=== PATIENT | male | born 1955 | race Two or more races ===

== ENCOUNTER 2022-01-29 04:26 | Inpatient (IN) | payer MEDICARE, OTHER ==
[~2022-01-29] VITALS: Ht 162.6 cm; Wt 65.3 kg
[2022-01-29 05:45] VITALS: BP 162/91
[2022-01-29 06:28] VITALS: BP 162/91
--- NOTE | 2022-01-29 06:44 | NUR ---
MS SCIENTIST ELECTRONICS NOTES PATIENT ARRIVED AT THE UNIT 0545 AM VIA STRETCHER ACCOMPANIED BY 2 EMT. DIRECT ADMIT FROM [facility]. PAPERWORKS GIVEN BY EMT. PATIENT A/OX4, NOT EXHIBITING S/S OF APPARENT DISTRESS ON ROOM AIR. NO C/O PAIN WHEN FIRST ARRIVED IN THE UNIT. [place]ORE[place] SPEAKING, CLASS B DRIVER WAS USED FOR ADMISSION QUESTIONS. PATIENT WISHES TO BE FULL CODE. BELONGINGS INVENTORIED AND SIGNED FOR. NEW ID BAND ON PATIENT. PER PATIENT HE HAS NO KNOWN ALLERGY. PER PATIENT ONLY MEDICAL HISTORY HE HAS IS HYPERTENSION, DIABETES-- WHICH HE HAD GOTTEN TOE AMPUTATIONS, AND WORK RELATED BACK INJURY THAT CAUSED HIM TO HAVE SURGERY BACK IN 2006. PATIENT DID NOT BRING ANY HOME MEDICATIONS WITH HIM AND DOES NOT KNOW THE MEDICATIONS HE IS TAKING ON TOP OF HIS HEAD-- ASKED PATIENT IF SOMEONE FROM HIS FAMILY COULD BRING THEM IN FOR RECONCILIATION. PER PATIENT I COULD CALL HIS DAUGHTER FOR HE DOES NOT KNOW DAUGHTERS NUMBER. WILL CALL DAUGHTER. AWAITING ADMISSION ORDERS. SAFETY IN PLACE FOR NOW, PATIENT TAUGHT ABOUT THE USE OF CALL LIGHT AND ORIENTED IN THE UNIT. V/S FOLLOWS: BP- 162/91, HR-99, RR-20, T-97.8, AND SATURATION 99% ON ROOM AIR. PER PATIENTHE IS 5'4" FOOT TALL, AND WEIGHS 144.9 LB IN THE BED SCALE. WILL FOLLOW THROUGH DOCTOR'S ORDERS AND INSERT CARE PLAN FOR PATIENT.
[2022-01-29] MEDS ORDERED: DEXTROSE 50%-WATER 50 ML DISP.SYRIN IV PRN (07:00)
[2022-01-29] MEDS ORDERED: MAG HYDROX/AL HYDROX/SIMETH 30 ML UDC PO PRN (07:00)
[2022-01-29] MEDS ORDERED: ZOLPIDEM TARTRATE 5 MG TABLET PO PRN (07:00)
[2022-01-29] MEDS ORDERED: Z GUARD REMEDY 4 OZ OINT TP PRN (07:00)
[2022-01-29] MEDS ORDERED: ACETAMINOPHEN 325 MG TABLET PO PRN (07:00)
[2022-01-29] MEDS ORDERED: ONDANSETRON HCL/PF 4 MG/2 ML VIAL IVP PRN (07:00)
[2022-01-29] MEDS ORDERED: MAGNESIUM HYDROXIDE 30 ML UDC PO PRN (07:00)
--- NOTE | 2022-01-29 07:06 | NUR ---
MS RN NOTE' CALLED DAUGHTER, NO ANSWER. LEFT A MESSAGED. WILL ENDORSE TO MORNING SHIFT RN.
--- NOTE | 2022-01-29 07:18 | NUR ---
MS RN NOTE PATIENT TAUGHT HOW TO USE BEDSIDE PHONE. CONTACTS OF DAUGHTER AND GIVEN TO PATIENT SO HE CAN CONTACT THEM ON HIS OWN.
--- NOTE | 2022-01-29 07:38 | NUR ---
RN NOTE REPORT GIVEN TO CLARISSA FOR CONTINUITY OF CARE. PATIENT ON THE PHONE WITH DAUGHTER AT THIS TIME.
--- NOTE | 2022-01-29 08:00 | NUR ---
RN OPENING NOTE PATIENT RECEIVED IN BED, AO X 4, IN NO ACUTE DISTRESS NOTED. RESPIRATORY EVEN AND UNLABORED ON ROOM AIR. SKIN IS WARM TO TOUCH, KEEP CLEAN/DRY, INTACT IV SITE. KEPT ELEVATED HOB FOR ENSURE AIRWAY AND ASPIRATION PRECAUTION, ALSO LOWEST POSITION OF THE BED, S/R UP X 2 FOR SAFETY. ALL SAFETY PRECAUTION APPLIED. CALL LIGHT WITHIN REACH, WILL CONTINUE TO MONITOR.
[2022-01-29 08:05] VITALS: BP 162/91
[2022-01-29 08:39] LABS: BASOPHILS % (AUTO) 0.2 % (0.0-2.0); EOSINOPHILS % (AUTO) 0.2 % (0.0-6.0); HEMATOCRIT 32 % (39-51); HEMOGLOBIN 10.8 g/dL (13.5-17.5); LYMPHOCYTES # (AUTO) 0.8 K/uL (0.8-4.8); LYMPHOCYTES % (AUTO) 5.5 % (20.0-44.0); MEAN CORPUSCULAR HGB CONC 33 g/dl (31.0-36.0); MEAN CORPUSCULAR VOLUME 86 fL (80-96); MONOCYTES % (AUTO) 6.6 % (2.0-12.0); NEUTROPHILS # (AUTO) 13.5 K/uL (1.8-8.9); NEUTROPHILS % (AUTO) 87.5 % (43.0-81.0); PLATELET COUNT (AUTO) 296 K/uL (150-450); RED BLOOD CELL COUNT(AUTO) 3.77 MIL/uL (4.5-6.0); WHITE BLOOD COUNT (AUTO) 15.4 K/uL (4.3-11.0)
[2022-01-29] MEDS: BLOOD SUGAR DIAGNOSTIC 1 EACH STRIP VI SCH ×4 (08:49→21:47)
[2022-01-29] MEDS ORDERED: HYDR-4077 PO (08:50)
[2022-01-29] MEDS ORDERED: CLON0.1T PO (08:50)
[2022-01-29] MEDS ORDERED: APIX5TAB PO (08:50)
[2022-01-29] MEDS ORDERED: INSU100V39 SQ (08:50)
[2022-01-29] MEDS ORDERED: FAMO20TA8 PO (08:50)
[2022-01-29] MEDS ORDERED: METF-442 PO (08:50)
[2022-01-29] MEDS ORDERED: LOSA50TA39 PO (08:50)
[2022-01-29] MEDS: IV 1/2NS 1000 ML 1,000 ML IV PRN ×2 (08:53→17:08)
[2022-01-29] MEDS: PANTOPRAZOLE 40 MG TABLET.DR PO SCH (08:55)
[2022-01-29 09:32] LABS: ALBUMIN 3.8 g/dL (3.4-5.0); BILIRUBIN,TOTAL 0.2 mg/dL (0.2-1.0); CALCIUM, SERUM 8.5 mg/dL (8.5-10.1); CREATININE 1.4 mg/dL (0.6-1.3); PHOSPHORUS 4.5 mg/dL (2.5-4.9); POTASSIUM 4.3 mmol/L (3.5-5.1); TOTAL PROTEIN, SERUM 7.8 g/dL (6.4-8.2)
[2022-01-29 09:38] LABS: THYROID STIMULATING HORMONE 1.987 uIU/mL (0.358-3.74)
[2022-01-29] MEDS: INSULIN REGULAR, HUMAN 100 UNIT/ML 3 ML VIAL SQ PRN ×2 (11:46→17:19)
[2022-01-29] MEDS: HYDROCODONE/APAP 10/325MG TABLET PO PRN ×2 (11:52→21:47)
[2022-01-29] MEDS ORDERED: CLONIDINE HCL 0.1 MG TABLET PO PRN (13:30)
[2022-01-29] MEDS ORDERED: CEFTRIAXONE 1 G VIAL IM SCH (14:00)
[2022-01-29] MEDS ORDERED: LACTULOSE 10 G/15 ML UDC (PYXIS) PO PRN (14:30)
[2022-01-29 16:00] VITALS: BP 198/105
[2022-01-29] MEDS: CEFTRIAXONE 1 G in IV D5W 50 ML IV SCH (16:09)
[2022-01-29] MEDS: APIXABAN 5 MG TABLET PO SCH (16:17)
[2022-01-29] MEDS: LOSARTAN POTASSIUM 50 MG TABLET PO SCH (16:18)
[2022-01-29] MEDS: hydrALAZINE HCL 50 MG TABLET PO SCH (17:21)
--- NOTE | 2022-01-29 18:28 | NUR ---
RN CLOSING NOTE PATENT IN BED, REMAINS AO X 4, IN NO ACUTE DISTRESS OBSERVED. RESPIRATORY EVEN AND UNLABORED ON ROOM AIR. SKIN IS WARM TO TOUCH KEEP CLEAN/DRY, INTACT IV SITE. KEPT ELEVATE HOB FOR ASPIRATION PRECAUTION AND ENSURE AIRWAY, ALSO LOWEST POSITION OF THE BED FOR SAFETY. CALL LIGHT WITHIN REACH, WILL ENDORSE TO ZIG ZAG STITCHER.
--- NOTE | 2022-01-29 19:35 | NUR ---
RN NOTES RECEIVED PATIENT AWAKE ON BED, A/OX4, AMBULATORY, DENIES PAIN, NO SOB, CALL LIGHT WITHIN REACH, [id number], WILL CONTINUE TO MONITOR
[2022-01-29 20:00] VITALS: BP 154/84
--- NOTE | 2022-01-29 21:52 | NUR ---
RN NOTES COMPLAINED OF GENERALIZED PAIN- NORCO 10MG PO GIVEN ORDERED, V/S STABLE
[2022-01-30 00:01] LABS: BILIRUBIN,URINE NEGATIVE (NEGATIVE); COLOR,URINE YELLOW (YELLOW); LEUKOCYTE ESTERASE ,URINE NEGATIVE (NEGATIVE); NITRITE, URINE NEGATIVE (NEGATIVE); PH,URINE 6.5 (5.0-8.0); PROTEIN,URINE NEGATIVE (NEGATIVE); UGLUCOSE 250 MG/DL mg/dL (NEGATIVE); UROBILINOGEN,URINE 0.2 EU/dL (0.2)
[2022-01-30] MEDS: hydrALAZINE HCL 50 MG TABLET PO SCH ×4 (00:23→17:30)
[2022-01-30] MEDS: IV 1/2NS 1000 ML 1,000 ML IV PRN ×2 (04:29→16:24)
[2022-01-30] MEDS: HYDROCODONE/APAP 10/325MG TABLET PO PRN ×3 (05:52→20:52)
--- NOTE | 2022-01-30 05:54 | NUR ---
RN NOTES COMPLAINED OF GENERALIZED PAIN- NORCO 10/325MG PO GIVEN ORDERED, V/S STABLE
[2022-01-30] MEDS: INSULIN REGULAR, HUMAN 100 UNIT/ML 3 ML VIAL SQ PRN ×2 (06:31→17:29)
--- NOTE | 2022-01-30 06:40 | NUR ---
RN NOTES AWAKE, MORNING CARE RENDERED, CALL LIGHT WITHIN REACH, [id number], PT. NEEDS ATTENDED
[2022-01-30 06:44] LABS: BASOPHILS % (AUTO) 0.4 % (0.0-2.0); EOSINOPHILS % (AUTO) 2.6 % (0.0-6.0); HEMATOCRIT 30 % (39-51); HEMOGLOBIN 10.2 g/dL (13.5-17.5); LYMPHOCYTES # (AUTO) 1.9 K/uL (0.8-4.8); LYMPHOCYTES % (AUTO) 22.7 % (20.0-44.0); MEAN CORPUSCULAR HGB CONC 34 g/dl (31.0-36.0); MEAN CORPUSCULAR VOLUME 86 fL (80-96); MONOCYTES # (AUTO) 0.7 K/uL (0.1-1.30); MONOCYTES % (AUTO) 8.4 % (2.0-12.0); NEUTROPHILS # (AUTO) 5.5 K/uL (1.8-8.9); NEUTROPHILS % (AUTO) 65.9 % (43.0-81.0); PLATELET COUNT (AUTO) 270 K/uL (150-450); RED BLOOD CELL COUNT(AUTO) 3.46 MIL/uL (4.5-6.0); WHITE BLOOD COUNT (AUTO) 8.4 K/uL (4.3-11.0)
[2022-01-30 07:07] LABS: ALBUMIN 3.4 g/dL (3.4-5.0); BILIRUBIN,DIRECT 0.1 mg/dL (0.0-0.2); BILIRUBIN,TOTAL 0.3 mg/dL (0.2-1.0); CALCIUM, SERUM 8.5 mg/dL (8.5-10.1); CREATININE 1.2 mg/dL (0.6-1.3); MAGNESIUM 2.3 mg/dL (1.8-2.4); PHOSPHORUS 4.3 mg/dL (2.5-4.9); POTASSIUM 3.9 mmol/L (3.5-5.1)
[2022-01-30] MEDS: BLOOD SUGAR DIAGNOSTIC 1 EACH STRIP VI SCH ×4 (07:10→22:30)
--- NOTE | 2022-01-30 07:51 | NUR ---
RN OPENING NOTE PATIENT RECEIVED IN BED, IN NO ACUTE DISTRESS NOTED, ao x 4. RESPIRATORY EVEN AND UNLABORED ON ROOM AIR. SKIN IS WARM TO TOUCH, KEEP CLEAN/DRY, INTACT IV SITE. KEPT ELEVATED HOB FOR ENSURE AIRWAY AND ASPIRATION PRECAUTION, ALSO LOWEST POSITION OF THE BED, S/R UP X 2 FOR SAFETY. ALL SAFETY PRECAUTION APPLIED. CALL LIGHT WITHIN REACH, WILL CONTINUE TO MONITOR.
[2022-01-30 08:00] VITALS: BP 148/89
[2022-01-30] MEDS: LOSARTAN POTASSIUM 50 MG TABLET PO SCH ×2 (08:07→16:20)
[2022-01-30] MEDS: PANTOPRAZOLE 40 MG TABLET.DR PO SCH (08:07)
[2022-01-30] MEDS: APIXABAN 5 MG TABLET PO SCH ×2 (08:09→16:23)
[2022-01-30] MEDS ORDERED: FAMOTIDINE (20 MG) 20 MG TABLET PO SCH (09:00)
[2022-01-30] MEDS: *INSULIN REGULAR(HUMULIN R)HUM 100 UNIT/ML VIAL SQ PRN ×2 (12:28→22:32)
[2022-01-30] MEDS ORDERED: IOHEXOL-300 100 ML VIAL IV ONE (12:38)
--- NOTE | 2022-01-30 12:59 | NUR ---
PATIENT SIGNED ON CONSENT FOR CT ABD AND PELVIS WITH CONTRAST.
[2022-01-30] MEDS: CEFTRIAXONE 1 G in IV D5W 50 ML IV SCH (14:37)
[2022-01-30] MEDS: DOCUSATE SODIUM 100 MG CAPSULE PO SCH (16:19)
[2022-01-30 16:50] VITALS: BP 181/96
--- NOTE | 2022-01-30 18:40 | NUR ---
RN CLOSING NOTE PATENT IN BED, REMAINS AO X 4, IN NO ACUTE DISTRESS OBSERVED. RESPIRATORY EVEN AND UNLABORED ON ROOM AIR. SKIN IS WARM TO TOUCH KEEP CLEAN/DRY, INTACT IV SITE. KEPT ELEVATED HOB FOR ASPIRATION PRECAUTION AND ENSURE AIRWAY, ALSO LOWEST POSITION OF THE BED FOR SAFETY. CALL LIGHT WITHIN REACH, WILL ENDORSE TO PENS AND PENCILS REPAIRER.
--- NOTE | 2022-01-30 19:10 | NUR ---
MS RN OPENING NOTES: RECEIVED PATIENT RESTING IN BED, AWAKE, A/O X4 NO S/S OF DISTRESS NOTED. CALL LIGHT WITHIN REACH. BED IN LOWEST AND LOCKED POSITION.
[2022-01-30 19:49] VITALS: BP 180/88
[2022-01-30 23:59] VITALS: BP 146/84
[2022-01-31] MEDS: hydrALAZINE HCL 50 MG TABLET PO SCH ×4 (00:24→17:26)
[2022-01-31] MEDS: IV 1/2NS 1000 ML 1,000 ML IV PRN (04:24)
[2022-01-31] MEDS: HYDROCODONE/APAP 10/325MG TABLET PO PRN ×3 (04:46→20:38)
[2022-01-31] MEDS: INSULIN REGULAR, HUMAN 100 UNIT/ML 3 ML VIAL SQ PRN ×2 (06:54→11:46)
[2022-01-31 06:56] LABS: BASOPHILS # (AUTO) 0.1 K/uL (0.0-0.2); BASOPHILS % (AUTO) 0.7 % (0.0-2.0); EOSINOPHILS % (AUTO) 2.7 % (0.0-6.0); HEMATOCRIT 30 % (39-51); HEMOGLOBIN 10.3 g/dL (13.5-17.5); LYMPHOCYTES # (AUTO) 1.9 K/uL (0.8-4.8); LYMPHOCYTES % (AUTO) 22.8 % (20.0-44.0); MEAN CORPUSCULAR HGB CONC 34 g/dl (31.0-36.0); MEAN CORPUSCULAR VOLUME 85 fL (80-96); MONOCYTES # (AUTO) 0.7 K/uL (0.1-1.30); MONOCYTES % (AUTO) 8.6 % (2.0-12.0); NEUTROPHILS # (AUTO) 5.4 K/uL (1.8-8.9); NEUTROPHILS % (AUTO) 65.2 % (43.0-81.0); PLATELET COUNT (AUTO) 281 K/uL (150-450); RED BLOOD CELL COUNT(AUTO) 3.51 MIL/uL (4.5-6.0); WHITE BLOOD COUNT (AUTO) 8.3 K/uL (4.3-11.0)
[2022-01-31 07:45] LABS: CREATININE 1.2 mg/dL (0.6-1.3)
[2022-01-31] MEDS: BLOOD SUGAR DIAGNOSTIC 1 EACH STRIP VI SCH ×4 (07:51→21:26)
--- NOTE | 2022-01-31 07:52 | NUR ---
MS/RN OPENING NOTE RECEIVED PATIENT IN BED, IN NO ACUTE DISTRESS NOTED, A/O x 4. RESPIRATORY EVEN AND UNLABORED ON ROOM AIR. SKIN IS WARM TO TOUCH, INTACT. IV ACCESS ON RIGHT UA MIDLINE AND LEFT AC #20G ARE INTACT WITH A RUNNING 1/2 NS @100 ML/HR. HOB IS ELEVATED FOR COMFORT. SAFETY PRECAUTIONS IN PLACED: BED LOCKED ON LOWEST POSITION, SIDE RAILS UPX2, CALL LIGHT WITHIN REACH, WILL CONTINUE WITH THE PLAN OF CARE.
[2022-01-31 08:20] VITALS: BP 131/68
[2022-01-31] MEDS: DOCUSATE SODIUM 100 MG CAPSULE PO SCH ×2 (08:28→17:26)
[2022-01-31] MEDS: PANTOPRAZOLE 40 MG TABLET.DR PO SCH (08:28)
[2022-01-31] MEDS: LOSARTAN POTASSIUM 50 MG TABLET PO SCH ×2 (08:29→17:26)
[2022-01-31] MEDS: APIXABAN 5 MG TABLET PO SCH ×2 (08:32→17:31)
[2022-01-31] MEDS ORDERED: NA PHOS,M-B/NA PHOS,DI-BA 1 EA ENEMA RC ONE (12:30)
[2022-01-31] MEDS: METOCLOPRAMIDE HCL 10 MG/2 ML VIAL IV SCH ×2 (13:19→17:25)
[2022-01-31] MEDS: CEFTRIAXONE 1 G in IV D5W 50 ML IV SCH (16:14)
[2022-01-31] MEDS ORDERED: IV NS 0.9% 1,000 ML IV SCH (18:30)
[2022-01-31] MEDS ORDERED: IV 1/2NS 1000 ML 1,000 ML IV PRN (18:30)
--- NOTE | 2022-01-31 19:22 | NUR ---
MS RN OPENING NOTE PATIENT RECEIVED AWAKE IN BED. PLEASANT. A/OX4. NO S/S OF DISTRESS. BREATHING UNLABORED ON RM AIR. SHAYLEE MIDLINE INTACT AND PATENT; LAC #20 INTACT AND PATENT W/ 1/2NS 75ML/HR. SAFETY MEASURES IN PLACE: BED AT LOWEST POSITION, RAILS UP X3, CALL TRISTAN WITHIN REACH. WILL CONTINUE TO MONITOR PATIENT.
--- NOTE | 2022-01-31 19:23 | NUR ---
MS/RN CLOSING NOTE PATIENT IN BED, IN NO ACUTE DISTRESS NOTED, A/O x 4. RESPIRATORY EVEN AND UNLABORED ON ROOM AIR. SKIN IS WARM TO TOUCH, INTACT. IV ACCESS ON RIGHT UA MIDLINE AND LEFT AC #20G ARE INTACT WITH A RUNNING 1/2 NS @75 ML/HR. HOB IS ELEVATED FOR COMFORT. KEPT PATIENT COMFORTABLE THROUGHOUT THE SHIFT. SAFETY PRECAUTIONS IN PLACED: BED LOCKED ON LOWEST POSITION, SIDE RAILS UPX2, CALL LIGHT WITHIN REACH, WILL ENDORSE TO THE NEXT SHIFT FOR LEIGHA.
[2022-01-31 20:00] VITALS: BP 108/68
[2022-01-31] MEDS: *INSULIN REGULAR(HUMULIN R)HUM 100 UNIT/ML VIAL SQ PRN (21:28)
[2022-02-01] MEDS: METOCLOPRAMIDE HCL 10 MG/2 ML VIAL IV SCH ×3 (00:13→12:18)
[2022-02-01] MEDS: hydrALAZINE HCL 50 MG TABLET PO SCH ×3 (00:14→12:18)
[2022-02-01] MEDS: HYDROCODONE/APAP 10/325MG TABLET PO PRN ×2 (05:34→12:39)
--- NOTE | 2022-02-01 07:03 | NUR ---
MS RN CLOSING NOTE PATIENT IS ASLEEP IN BED. A/OX4. NO S/S OF DISTRESS, BREATHING UNLABORED ON RM AIR. SHAYLEE MIDLINE INTACT AND PATENT; LAC #20 INTACT AND PATENT W/ 1/2NS 75ML/HR. SAFETY MEASURES IN PLACE: BED AT LOWEST POSITION, RAILS UP X3, CALL TRISTAN WITHIN REACH. WILL ENDORSE TO NEXT SHIFT FOR LEIGHA.
[2022-02-01] MEDS: INSULIN REGULAR, HUMAN 100 UNIT/ML 3 ML VIAL SQ PRN ×2 (07:06→12:12)
[2022-02-01] MEDS: BLOOD SUGAR DIAGNOSTIC 1 EACH STRIP VI SCH ×2 (07:06→12:12)
--- NOTE | 2022-02-01 07:30 | NUR ---
MS RN OPENING NOTE RECEIVED PATIENT AWAKE IN BED. A/OX4. NO S/S OF DISTRESS NOTED. BREATHING UNLABORED AND EVEN ON ROOM AIR. SHAYLEE MIDLINE INTACT AND PATENT; LAC #20 INTACT AND PATENT INFUSING 1/2 NS 75ML/HR. SAFETY MEASURES IN PLACE: BED AT LOWEST POSITION AND LOCKED. SIDE RAILS UP X2, CALL LIGHT AND TABLE WITHIN REACH. WILL CONTINUE TO MONITOR THE PATIENT.
[2022-02-01] MEDS: PANTOPRAZOLE 40 MG TABLET.DR PO SCH (07:43)
[2022-02-01 08:00] VITALS: BP 116/66
[2022-02-01] MEDS: DOCUSATE SODIUM 100 MG CAPSULE PO SCH ×2 (08:28→16:37)
[2022-02-01] MEDS: LOSARTAN POTASSIUM 50 MG TABLET PO SCH ×2 (08:29→16:37)
[2022-02-01] MEDS: APIXABAN 5 MG TABLET PO SCH ×2 (08:33→16:38)
[2022-02-01] MEDS ORDERED: PANT40TA49 PO (14:33)
[2022-02-01] MEDS ORDERED: METO-295 PO (14:33)
[2022-02-01] MEDS: CEFTRIAXONE 1 G in IV D5W 50 ML IV SCH (14:54)
[2022-02-01 16:37] VITALS: BP 136/82
--- NOTE | 2022-02-01 16:55 | NUR ---
KEY BED INSTALLER NOTES DISCHARGE PATIENT IN STABLE CONDITION WITH STABLE VITAL SIGNS AT 1655 PM. PATIENT THE ADDICTION NURSE OF THE INSTRUCTIONS VERBALIZED UNDERSTANDING. IV ACCESS ON LEFT AC REMOVED COVERED WITH DRY DRESSING. NO BLEEDING NOTED. RIGHT UPPER MIDLINE REMOVED COMPLETELY WITH INTACT TIP COVERED THE SITE WITH DRY DRESSING. NO BLEEDING NOTED. BELONGINGS ACCOUNTED AND SIGNED FOR . ARM BAND REMOVED. ALL INSTRUCTIONS AND MEDICATIONS ORDER ALSO EXPLAINED TO THE DAUGHTER. WHEELED THE PATIENT TO LOBBY. PATIENT LEFT UNIT IN STABLE CONDITION. DAUGHTER PICKED THE PATIENT UP. MD AND CHARGE NURSE AWARE OF THE DISCHARGE.
== END 2022-02-01 16:30 | disposition home or self-care (01) | DRG 73 ==
LOC: MED 05:43
PROVIDERS: ADMIT Nurse Practitioner Acute Care; ATTEND Nurse Practitioner Acute Care
PROC: 05HB33Z Insertion of Infusion Device into Right Basilic Vein, Percutaneous Approach (ICD-10-PCS; principal; 2022-01-30)
DX: E11.43 Type 2 diabetes mellitus with diabetic autonomic (poly)neuropathy (principal); N17.0 Acute kidney failure with tubular necrosis; N39.0 Urinary tract infection, site not specified; I10 Essential (primary) hypertension; B96.89 Other specified bacterial agents as the cause of diseases classified elsewhere; Z89.429 Acquired absence of other toe(s), unspecified side; E78.5 Hyperlipidemia, unspecified; K31.84 Gastroparesis; Z87.891 Personal history of nicotine dependence; M54.16 Radiculopathy, lumbar region; Z79.84 Long term (current) use of oral hypoglycemic drugs; Z79.899 Other long term (current) drug therapy; Z79.01 Long term (current) use of anticoagulants
CPT/HCPCS: 36410; 36415; 76700-TC; 80048-TC; 80053-TC; 80076-TC; 82962-TC; 83690-TC; 83735-TC; 84100-TC; 84443-TC; 85025-TC; 87081-TC; 87086-TC; G0378; J0696; J1815; J2765; J3490; J7060; Q9967